=== PATIENT | female | born 1945 | race Caucasian/White ===

== ENCOUNTER 2017-02-26 06:59 | Emergency (ER) | payer SELFPAY ==
[~2017-02-26] VITALS: Ht 160 cm; Wt 99.8 kg
[2017-02-26 07:15] VITALS: BP 156/76
[2017-02-26] MEDS ORDERED: PRED20TA PO (07:58)
[2017-02-26] MEDS ORDERED: VALA1000 PO (07:58)
[2017-02-26] MEDS ORDERED: HYDR-971 PO (07:58)
--- NOTE | 2017-02-26 07:58 | PHYS DOC ---
Past Medical History Past Medical History: Diabetes-Type II Past Surgical History: Tonsillectomy, Other Additional Past Surgical Histo: POOR HISTORIAN Alcohol Use: None Drug Use: None Adult General Chief Complaint Chief Complaint: INSECT BITE HPI HPI Patient is a 71 year old female who presents to the ED with concern for an insect bite. The patient states she got a red spot on her right breast about 5 days ago. It never did itch, it feels like it "stings". Now it has spread. The lesions continue to staying and burn. She's had no fever. She doesn't know what might have bit her. Patient has no chronic medical problems. She has not had her shingles vaccine. Review of Systems Review of Systems Constitutional: Denies fever or chills [] Integument: As in history of present illness Current Medications Current Medications Current Medications Medications (Trade) Dose Ordered Sig/Reese Start Time Stop Time Status Last Admin Dose Admin Acetaminophen/ Hydrocodone Bitart (Lortab 5/325) 1 tab 1X ONCE 02/26/17 08:30 02/26/17 08:31 DC 02/26/17 08:27 1 TAB Prednisone (Prednisone) 50 mg 1X ONCE 02/26/17 08:00 02/26/17 08:01 DC 02/26/17 08:08 50 MG Valacyclovir HCl (Valtrex) 1,000 mg 1X ONCE 02/26/17 08:00 02/26/17 08:01 DC 02/26/17 08:09 1,000 MG Allergies Allergies Allergies Coded Allergies Type Severity Reaction Last Updated Verified No Known Drug Allergies 02/26/17 No Physical Exam Physical Exam Constitutional: Well developed, well nourished, no acute distress, non-toxic appearance. [] HENT: Normocephalic, atraumatic, bilateral external ears normal, nose normal. [ ] Eyes: conjunctiva normal, no discharge. [] Neck: Normal range of motion, no stridor. [] Skin: Warm, dry, no erythema. There are red, papular lesions on the right breast and on the right mid back that appear consistent with shingles. No vesicles Extremities: No tenderness, no cyanosis, no clubbing, ROM intact, no edema. [] Neurologic: Alert and oriented X 3, normal motor function, normal sensory function, no focal deficits noted. [] Current Patient Data Vital Signs Vital Signs Date Time Temp Pulse Resp B/P (MAP) Pulse Ox O2 Delivery O2 Flow Rate FiO2 02/26/17 07:15 98.3 77 18 97 Room Air 98.3 EKG EKG [] Radiology/Procedures Radiology/Procedures [] Course & Med Decision Making Course & Med Decision Making Pertinent Labs and Imaging studies reviewed. (See chart for details) 71-year-old female presents with "stinging" red rash that she thought started as an insect bite but appears to be shingles. It started about 5 days ago so it may be a bit too late for antiviral but we will initiate that anyway. Patient is not driving today. She was given a hydrocodone. See instructions for plan. [] Dragon Disclaimer Dragon Disclaimer This electronic medical record was generated, in whole or in part, using a voice recognition dictation system. Departure Departure Impression: Primary Impression: Shingles Disposition: HOME, SELF-CARE Condition: STABLE Referrals: NO PCP (PCP) Patient Instructions: Shingles, [id number] Additional Instructions: For shingles, we will start an antiviral medication that may help. Take one 3 times a day for 7 days. We will use prednisone for pain and inflammation. You had your first dose here in the emergency department. Your next dose is due Tuesday morning, it is taken once every 24 hours. Prednisone makes your blood sugar run high but this is only temporary. For pain, I have prescribed hydrocodone. This is an opiate and will be sedating and constipating. Do not take while driving. It is safe to combine these new medications and they are safe to take with your medications. Scripts Valacyclovir Hcl (VALACYCLOVIR) 1,000 Mg Tablet 1 TAB PO TID, #21 TAB Prov: OG JOHNSON MD 02/26/17 Prednisone (PREDNISONE) 20 Mg Tablet 40 MG PO DAILY for 7 Days, #14 TAB Prov: OG JOHNSON MD 02/26/17 Hydrocodone/Apap 5-325 (NORCO 5-325 TABLET) 1 Each Tablet 1-2 TAB PO Q4-6HRS for shingles pain, #20 TAB Prov: OG JOHNSON MD 02/26/17 OG JOHNSON MD Feb 26, 2017 07:58
[2017-02-26] MEDS ORDERED: predniSONE 10 MG TABLET PO ONE (08:00)
[2017-02-26] MEDS ORDERED: valACYclovir 500 MG TABLET. PO ONE (08:00)
[2017-02-26] MEDS ORDERED: HYDROcodone/APAP 5/325MG 1 TAB TABLET PO ONE (08:30)
== END 2017-02-26 08:31 | disposition home or self-care (01) ==
LOC: ER 06:59
DX: B02.9 Zoster without complications (principal); E11.9 Type 2 diabetes mellitus without complications
CPT/HCPCS: 99284; J7512